=== PATIENT | male | born 1955 | race Caucasian/White ===

== ENCOUNTER 2019-11-25 21:36 | Emergency (ER) | payer BC ==
[~2019-11-25] VITALS: Ht 170.2 cm; Wt 104.3 kg
[2019-11-25 22:16] VITALS: Ht 170.2 cm; Wt 104.3 kg
[2019-11-25 23:49] VITALS: BP 125/71
== END 2019-11-25 23:49 | disposition home or self-care (01) ==
LOC: ED 21:36
DX: H61.21 Impacted cerumen, right ear (principal)